=== PATIENT | male | born 1955 | race Caucasian/White ===

== ENCOUNTER → 2019-07-14 08:11 | Outpatient (CLI) | payer MEDICAID, SELFPAY ==
--- NOTE | 2019-07-14 08:11 | MR_ITS ---
PROCEDURE: MR LUMBAR SPINE WO CON CLINICAL INDICATION: back pain COMPARISON: No exams were available for comparison TECHNIQUE: Standard multiplanar multiecho sequences are performed without contrast. 3-D MIP and myelographic images are also rendered and reviewed FINDINGS: The lumbar vertebrae are normal height and alignment. Discogenic type 1 endplate disease is noted at L5 and S1. There is desiccation and loss of disc space heights of L2-3 L4-5 and L5-S1 greatest at L5-S1. At T11-12 there is mild disc bulge. At L2-3 there is mild disc bulge and mild hypertrophic facet disease bilaterally. There is mild mass effect on the thecal sac and slight disc encroachment into the neural foramina without high-grade stenoses. At L3-4 there is mild disc bulge with mild encroachment of the bilateral neural foramina and mild mass effect on the thecal sac. There is mild hypertrophic facet disease. No high-grade stenosis is apparent. At L4-5 there is broad-based disc bulge with bilateral ligamentum flavum and facet hypertrophy with mild mass effect on the thecal sac. There is mild bilateral foraminal stenoses without nerve root impingement. No central canal stenosis is apparent. At L5-S1 there is broad-based disc bulge with mild mass effect on the thecal sac without central canal stenosis with mild bilateral foraminal stenosis. IMPRESSION: Multilevel degenerative disc and facet disease with mild foraminal stenoses but no high-grade central canal stenosis or herniated disc. Dictated by: Sergio Rajan 07/14/2019 09:50 Electronically signed by Sergio Rajan in [facility] 07/14/2019 09:50
== END ==
PROVIDERS: PCP Emergency Medicine; Visit Provider Emergency Medicine
DX: M54.9 Dorsalgia, unspecified (principal)
CPT/HCPCS: 72148; 76376

== ENCOUNTER → 2020-10-14 14:04 | Outpatient (CLI) | payer MEDICAID, SELFPAY ==
[2020-10-14 14:30] LABS: Basophils % 0.9 % (0.1-2.0); Eosinophils # 0.2 K/mm3 (0.0-0.4); Eosinophils % 4.4 % (0.1-12.0); Hematocrit 39.4 % (42.0-52.0); Hemoglobin 13.2 g/dL (14.1-18.0); Lymphocytes # 1.4 K/mm3 (0.7-4.5); Mean Corpuscular HGB Conc 33.4 g/dL (31.8-35.4); Mean Corpuscular Hemoglobin 31.1 pg (27.0-31.2); Mean Platelet Volume 8.4 fl (7.4-10.4); Monocytes # 0.4 K/mm3 (0.1-1.0); Monocytes % 7.8 % (1.7-9.3); Neutrophils % 59.9 % (37.0-80.0); Platelet Count 277 K/mm3 (142-424); Red Blood Count 4.24 M/mm3 (4.60-6.20); Red Cell Distribution Width 12.7 % (11.5-17.5)
[2020-10-14 14:37] LABS: 25-OH Vitamin D, Total 34.4 ng/mL (30-100)
[2020-10-14 18:10] LABS: Chloride 102 mmol/L (98-107)
[2020-10-14 18:11] LABS: Potassium 4.2 mmoL/L (3.5-5.1); Sodium 136 mmol/L (136-145)
[2020-10-14 18:13] LABS: Alanine Aminotransferase 31 U/L (12-78); Albumin Level 4.1 g/dl (3.5-5.0); Albumin/Globulin Ratio 1.7 (1.1-1.8); Alkaline Phosphatase 84 U/L (38-126); Anion Gap 13.2 mEq/L (5-15); Aspartate Amino Transferase 28 U/L (17-59); Bilirubin,Total 0.6 mg/dl (0.2-1.3); Blood Urea Nitrogen 17 mg/dl (9-20); Carbon Dioxide 25 mmol/L (22.0-30.0); Cholesterol 156 mg/dl (140-200); Estimated Glomerular Filt Rate 97 ml/min (>60); GFR (African American) 118 ML/MIN (>60); Globulin 2.4 g/dL (1.3-3.2); Total Protein,Serum 6.5 g/dl (6.3-8.2); Triglycerides 57 mg/dl (30-150); VLDL Cholesterol 11 mg/dL (0-40)
[2020-10-14 18:14] LABS: Calcium 8.9 mg/dl (8.4-10.2); Chol/HDL Ratio 2.4 (1-3.5); Glucose 123 mg/dl (74-100); HDL Cholesterol 66 mg/dl (40-60)
[2020-10-14 18:25] LABS: Direct LDL Cholesterol 74.09 mg/dL (100-129)
[2020-10-14 18:31] LABS: T4 (Thyroxine) 7.2 ug/dl (5.53-11.0)
[2020-10-14 18:45] LABS: Thyroid Stimulating Hormone 0.72 uIU/mL (0.465-4.68)
[2020-10-14 21:55] LABS: Prostate Specific Ag Screen 4.5 ng/ml (0.0-4.0)
== END ==
PROVIDERS: Visit Provider Physician Assistant
DX: I10 Essential (primary) hypertension (principal); Z91.14 Patient's other noncompliance with medication regimen; Z12.5 Encounter for screening for malignant neoplasm of prostate; K40.90 Unilateral inguinal hernia, without obstruction or gangrene, not specified as recurrent; Z68.20 Body mass index [BMI] 20.0-20.9, adult
CPT/HCPCS: 80053; 80061; 82306; 84436; 84443; 85025; G0103

== ENCOUNTER → 2020-10-28 07:43 | Outpatient (CLI) | payer MEDICAID, SELFPAY ==
--- NOTE | 2020-10-28 07:43 | CT_ITS ---
PROCEDURE: CT PELVIS WO CON CLINICAL INDICATION: right inguinal hernia repair Rlq pain [id number] poss hernia COMPARISON: No exams were available for comparison TECHNIQUE: Axial images obtained with sagittal and coronal reformats. All CT scans at the facility use one or more dose reduction, viz: automated exposure control, ma/kV adjustment per patient size (including targeted exams where dose is matched to indication, i.e. head), or iterative reconstruction technique. FINDINGS: There are no previous exams available for comparison. There does appear to be small bilateral direct inguinal hernias containing fat slightly larger on the right. No pelvic mass or abnormal fluid collection is apparent. Unremarkable appearing appendix. There is degenerative disc disease at L5-S1 and there are mild osteoarthritic changes of the hips. Small sclerotic focus involves the ilium on the right at 5 mm and may be due to a bone island. IMPRESSION: Small bilateral direct inguinal hernias containing fat slightly larger on the right. Dictated by: Julius Gresham MD 10/29/2020 08:04 Julius Gresham MD in [facility] 10/29/2020 08:04
== END ==
PROVIDERS: PCP Emergency Medicine; Visit Provider Physician Assistant
DX: K40.90 Unilateral inguinal hernia, without obstruction or gangrene, not specified as recurrent (principal)
CPT/HCPCS: 72192

== ENCOUNTER → 2020-12-04 11:51 | Outpatient (CLI) | payer MEDICAID, SELFPAY ==
[2020-12-04 12:14] LABS: Appearance,Urine CLEAR (Clear); Bilirubin,Urine Negative (Negative); Blood, Urine Negative (Negative); Color,Urine YELLOW (Yellow); Glucose,Urine (UA) Negative (Negative); Ketones,Urine Negative (Negative); Leukocyte Esterase,Urine Negative (Negative); Microscopic, Urine URINE MICROSCOPIC (MICROSCOPIC); Nitrate,Urine Negative (Negative); Protein,Urine Negative (Negative); Specific Gravity, Urine >= 1.030 (1.005-1.030); Urobilinogen,Urine 0.2 EU/dl (0.2)
[2020-12-04 12:26] LABS: Basophils # 0.1 K/mm3 (0-0.2); Basophils % 1.4 % (0.1-2.0); Eosinophils # 0.5 K/mm3 (0.0-0.4); Eosinophils % 9.6 % (0.1-12.0); Hematocrit 38.1 % (42.0-52.0); Lymphocytes # 1.2 K/mm3 (0.7-4.5); Lymphocytes % 22.5 % (10-50); Mean Corpuscular Hemoglobin 31.8 pg (27.0-31.2); Mean Corpuscular Volume 93.3 fl (80-94); Monocytes # 0.5 K/mm3 (0.1-1.0); Monocytes % 8.6 % (1.7-9.3); Neutrophils % 57.8 % (37.0-80.0); Platelet Count 228 K/mm3 (142-424); Red Blood Count 4.08 M/mm3 (4.60-6.20); Red Cell Distribution Width 12.8 % (11.5-17.5); White Blood Count 5.2 K/mm3 (4.8-10.8)
[2020-12-04 12:51] LABS: Chloride 100 mmol/L (98-107); Potassium 4.2 mmoL/L (3.5-5.1); Sodium 138 mmol/L (136-145)
[2020-12-04 12:54] LABS: Alanine Aminotransferase 17 U/L (12-78); Albumin Level 4.2 g/dl (3.5-5.0); Albumin/Globulin Ratio 1.6 (1.1-1.8); Alkaline Phosphatase 77 U/L (38-126); Anion Gap 12.2 mEq/L (5-15); Aspartate Amino Transferase 22 U/L (17-59); Bilirubin,Total 0.2 mg/dl (0.2-1.3); Blood Urea Nitrogen 13 mg/dl (9-20); Calcium 8.9 mg/dl (8.4-10.2); Carbon Dioxide 30 mmol/L (22.0-30.0); Estimated Glomerular Filt Rate 97 ml/min (>60); GFR (African American) 118 ML/MIN (>60); Globulin 2.7 g/dL (1.3-3.2); Glucose 84 mg/dl (74-100); Total Protein,Serum 6.9 g/dl (6.3-8.2)
== END ==
PROVIDERS: Visit Provider Surgery
DX: Z01.812 Encounter for preprocedural laboratory examination (principal); Z11.52 Encounter for screening for COVID-19; K40.90 Unilateral inguinal hernia, without obstruction or gangrene, not specified as recurrent
CPT/HCPCS: 36415; 80053; 81001; 85025; U0003

== ENCOUNTER 2020-12-06 06:17 | Day surgery (SDC) | payer MEDICAID, SELFPAY ==
[2020-12-04 10:18] VITALS: BMI 20.7
[2020-12-06] VITALS (10 sets, daily range): BP systolic 120–147; BP diastolic 69–88; PULSE 63–71; RESP 12–18; TEMP 36.5–36.6; O2SAT 96–100
--- NOTE | 2020-12-06 07:30 | HMH.ANESCL ---
[facility] Anesthesia Checklist - Structural Data Admitted From: Home Planned Operative Procedure/s: r inguinal hernia repair Consent for Planned Operative Procedure(s) Verified: Yes - Additional verifications Anesthesia Reactions: No Hx Blood Transfusions: No Blood Transfusion Reaction: No - Airway Assessment C-Spine Mobility Assessed: Yes TMJ Mobility Assessed: Yes Dentition: Good Dentition - Neurological Assessment Level of Consciousness: Awake, Alert, Appropriate - Anesthesia Plan Anesthesia Risk discussed: Yes Anesthesia Plan: Verified ASA Class: I Anesthesia Type: General [facility] History I have reviewed the patient's past medical history: Yes Medical History: Reports:: Hypertension Denies:: Cancer, Diabetes Mellitus Type 1, Diabetes Mellitus Type 2, Internal Pacemaker, MRSA, Seizures *Have you ever received a pneumonia vaccine?: No *Have you received a flu vaccine this season?: No Other Medical History: Reports: Other. Denies: Blood Transfusion Reaction Anesthesia experience/problems:: none Other Surgeries: Yes: No Previous Surgery, Other. No: Pacemaker Amputation: No Fractures: Yes - *Social History Last grade of school completed: High school graduate Smoking Status: Never smoker Alcohol Intake: current Alcohol Intake Frequency:: 3 or more drinks per day Substance Use Type: marijuana *Occupational Status:: retired Housing: house Household Members: significant other *Travel in the last 8 weeks: None Family Hx:: Cancer
--- NOTE | 2020-12-06 08:07 | P.OP_ITS ---
Date of procedure: 12/06/20 Pre-op Diagnosis:: Right inguinal hernia Post-op Diagnosis:: Same Procedure performed:: Open right inguinal hernia repair Surgeon:: Joaquín Correa MD Wrap Turner(s):: Jonny INSTRUCTIONAL MATERIALS DIRECTOR:: Black García Anesthesia: LMA Estimated blood loss (mL): 15 Operative findings:: Large direct defect Operative note:: After informed consent was obtained the patient was taken to the operating room and placed in the supine position. General anesthesia was induced and his abdomen/groin/scrotum were prepped and draped in a sterile fashion. After infiltration local anesthetic an oblique right groin incision was made. A combination of electrocautery, sharp dissection, and blunt dissection was utilized to dissect through Roya's fascia to the level of the external aponeurosis. The external aponeurosis was sharply opened to the level of the external ring. The contents of the canal were carefully elevated. A large direct defect was noted. No obvious indirect defect was seen. An extra-large PerFix plug was secured in the defect with interrupted Ethibond. The PerFix overlay was then secured to the shelving edge inferiorly and fascial margin superiorly with interrupted Ethibond. The wound was thoroughly irrigated. The external aponeurosis was reapproximated with running Vicryl suture. Roya's fascia was reapproximated in a similar manner. Skin was then closed with running 3-0 Stratafix. Dressings were applied and the patient was transferred to recovery in stable condition after removal of his laryngeal mask airway. Condition: stable Disposition: PACU Specimens:: None Complications:: No immediate
--- NOTE | 2020-12-06 08:21 | P.PN_ITS ---
[facility] Anesthesia Record Part I Intake, IV Amount: 1,500 Estimated blood loss (mL): 0 Urine output (mL): 0 Blood Pressure: 145/87 SaO2: 98 Pulse Rate: 64 Respiratory Rate: 12 Temperature: 97.8 F Patient is:: Awake, Stable Stable to PACU at:: 08:20
[2020-12-06 13:56] LABS: Microscopic, Urine URINE MICROSCOPIC (MICROSCOPIC)
[2020-12-06 14:00] LABS: Appearance,Urine CLEAR (Clear); Bilirubin,Urine Negative (Negative); Blood, Urine Negative (Negative); Color,Urine YELLOW (Yellow); Glucose,Urine (UA) Negative (Negative); Ketones,Urine Negative (Negative); Leukocyte Esterase,Urine Negative (Negative); Nitrate,Urine Negative (Negative); Protein,Urine Negative (Negative); Specific Gravity, Urine >= 1.030 (1.005-1.030); Urobilinogen,Urine 0.2 EU/dl (0.2)
[2020-12-06 14:16] LABS: Squamous Epithelial Cell,Urine Occasional #/hpf (0-5); WBC,Urine Occasional #/hpf (0-3)
--- NOTE | 2020-12-06 17:42 | HMH.ANESII ---
[facility] Anesthesia Record Part II Discharge Time: 08:50 Destination: Surgical Day Care (OP Surgery) PACU nurse assessment reviewed?: Yes Patient Condition:: Good Anesthesia Complications:: None Swallowing reflex intact?: Yes Cyanosis?: No Blood Pressure: 140/80 Pulse Rate: 64 Temperature: 97.8 F Mental Status: Alert & Oriented Pain level:: 0 Nausea and/or vomitting:: None Intake, IV Amount: 0
== END 2020-12-06 09:30 | disposition home or self-care (01) ==
LOC: OR 06:18
PROVIDERS: PCP Physician Assistant; Visit Provider Surgery
PROC: (CPT 49505; principal; 2020-12-06 07:30)
DX: K40.90 Unilateral inguinal hernia, without obstruction or gangrene, not specified as recurrent (principal); I10 Essential (primary) hypertension; Z80.9 Family history of malignant neoplasm, unspecified
CPT/HCPCS: 49505; 81001; 96374; J2405